=== PATIENT | female | born 1940 | race Caucasian/White ===

== ENCOUNTER → 2017-05-03 | Day surgery (SDC) | payer MEDICARE ==
[~2017-05-03] VITALS: Ht 160 cm; Wt 81.7 kg
[~2017-05-03] MED LIST: ASPI-973 PO; CHOL200047 PO; DOCU240C41 PO; DOXE10OR2 PO; LACT1CAP73 PO; LANS30CA PO; LEVO50TA6 PO; LORA0.5T PO; MAGN27TA2 PO; Sodium Chloride LOK Flush 10 mL Syringe IV PRN; fentaNYL-PF 50 mCg/mL 2 mL Inj IVPUSH PRN
[2017-05-03 12:37] VITALS: BP 110/63; PULSE 70; RESP 16; O2SAT 97
[2017-05-03] MEDS: 0.9% Sodium Chloride 1,000 ML IV SCH ×2 (12:43→14:17)
[2017-05-03 14:23] VITALS: BP 113/62; PULSE 75; RESP 16; O2SAT 98
[2017-05-03 14:33] VITALS: BP 106/58; PULSE 74; RESP 16; O2SAT 100
[2017-05-03 14:43] VITALS: BP 94/56; PULSE 71; RESP 16; O2SAT 99
--- NOTE | 2017-05-03 15:00 | ENDO ---
[address] [address] ENDOSCOPY PROCEDURE PATIENT: ANIYA PENA : 1940 MR#: [id number] ADMIT: 05/03/2017 JOB ID: [id number] DATE: 05/03/2017 PROCEDURE: Colonoscopy. INDICATION: Change in bowel habits. The patient's ASA classification is 2. Mallampati score is 2. MEDICATIONS: 1. Versed 6 mg. 2. Fentanyl 150 mcg. INSTRUMENT USED: PCF H 180 AL. PREPARATION QUALITY: Was fair. PROCEDURE DETAILS: After informed consent was obtained, the patient was brought into the GI suite, where she was placed on oxygen via nasal cannula and monitored with continuous pulse oximeter, telemetry and blood pressure monitoring. A time-out was performed. Then, she was placed in the left lateral decubitus position and medications were administered for sedation. Digital rectal examination was performed, which was unremarkable. The colonoscope was then inserted into the rectum and advanced under direct visualization to the cecum, which was identified by the presence of the ileocecal valve and appendiceal orifice. Once the cecum was reached, the colonoscope was withdrawn back into the rectum and mucosa and lumen were examined. In the rectum, retroflexion was performed. Following retroflexion, remaining air in the rectum was suctioned and the procedure was completed. FINDINGS: 1. In the transverse colon, there was a flat polyp that measured approximately 7 mm. The polyp was lifted using normal saline and then removed with a combination of hot snare and cold biopsy forceps. 2. In the distal sigmoid colon, there was a pedunculated polyp that measured approximately 8 mm that was removed piecemeal with a hot snare. 3. In the rectum, there was an approximately 5 mm polyp that was removed with a hot snare. 4. Scattered diverticula were seen throughout the left side of the colon. The sigmoid colon was quite tortuous making the procedure moderately difficult. IMPRESSION: 1. Transverse colon polyp. 2. Sigmoid polyp. 3. Rectal polyp. 4. Left-sided diverticulosis. RECOMMENDATIONS: 1. Fiber rich diet. 2. Avoid nonsteroidal anti-inflammatory drugs and anticoagulants for 72 hours. 3. Repeat colonoscopy in three years. COMPLICATIONS: None. ESTIMATED BLOOD LOSS: Less than 5 mL.
== END | disposition home or self-care (01) ==
LOC: END 00:31
PROVIDERS: ATTEND Internal Medicine Gastroenterology
DX: D12.3 Benign neoplasm of transverse colon (principal); D12.5 Benign neoplasm of sigmoid colon; D12.8 Benign neoplasm of rectum; K57.30 Diverticulosis of large intestine without perforation or abscess without bleeding; R19.4 Change in bowel habit; K21.9 Gastro-esophageal reflux disease without esophagitis; R91.8 Other nonspecific abnormal finding of lung field; E03.9 Hypothyroidism, unspecified; R73.01 Impaired fasting glucose; M85.88 Other specified disorders of bone density and structure, other site; F17.210 Nicotine dependence, cigarettes, uncomplicated; Z79.82 Long term (current) use of aspirin; Z79.899 Other long term (current) drug therapy
CPT/HCPCS: 45380; 45385; 88305; 99153; G0500; J2250; J3010; J7030